=== PATIENT | female | born 1945 | race Caucasian/White ===

== ENCOUNTER 2020-12-22 11:33 | Inpatient (IN) | payer MEDICARE, OTHER, SELFPAY ==
--- NOTE | ~2020-12-22 | XR_ITS ---
EXAMINATION: XR chest 2V DATE: 12/22/2020 12:03 INDICATION: Fatigue TECHNIQUE: AP and lateral views of the chest are obtained. COMPARISON: 06/30/2014 FINDINGS: There are patchy opacities of the lung bases. There is a nodular opacity of the right middl e lobe. There is no pleural effusion or pneumothorax. The cardiomediastinal silhouette is normal. The re is severe thoracic spondylosis. IMPRESSION: 1. Bibasilar airspace opacities and nodular opacity of the right middle lobe. Findings could be infec tious or inflammatory however malignancy is not excluded. Recommend followup radiographs in 10-14 day s after appropriate therapy to evaluate for improvement/resolution. Reviewed, dictated and finalized at location [facility]. IMPRESSION: 1. Bibasilar airspace opacities and nodular opacity of the right middle lobe. F indings could be infectious or inflammatory however malignancy is not excluded. Recommend followup radiographs in 10-14 days after appropriate therapy to eval uate for improvement/resolution.
--- NOTE | ~2020-12-22 | CT_ITS ---
EXAMINATION: CT brain wo con DATE: 12/22/2020 17:00 INDICATION: Weakness, diminished oral intake TECHNIQUE: Computed tomography (CT) of the head was performed without intravenous contrast. The mA wa s adjusted according to patient size. Iterative reconstruction technique was employed. Exam dose: 60 5.33 mGy-cm total exam DLP. COMPARISON: 12/22/2014 CT brain FINDINGS: There is nonspecific diminished attenuation cerebral white matter, likely due to chronic sm all vessel ischemic changes. Bilateral carotid siphon internal carotid artery and vertebral artery ca lcifications. No intracranial mass lesion or hemorrhage or cerebrovascular accident is evident. No midline shift or mass effect. There is moderate cerebral and cerebellar volume loss. No subdural or epidural hematoma. No fracture or bone destruction of the cranial vault. There is soft tissue thickening of the ethmoid air cells and minimal mucoperiosteal thickening of the maxillary sinuses, mild mucoperiosteal thicken ing of the sphenoid sinuses. The mastoid air cells are unremarkable. IMPRESSION: Cerebral atherosclerosis and chronic small vessel ischemic changes of the cerebral white matter No acute intracranial finding Reviewed, dictated and finalized at [facility]. Reviewed, dictated and finalized at location [facility].
[2020-12-22 11:35] VITALS: PULSE 57; RESP 18; O2SAT 90
--- NOTE | 2020-12-22 11:51 | ECG_ITS ---
Measurements Intervals [place] Rate: 60 P: 57 NH: 132 QRS: 58 QRSD: 80 T: 160 QT: 429 QTc: 430 Interpretive Statements SINUS RHYTHM CANNOT RULE OUT SEPTAL INFARCT, AGE INDETERMINATE BASELINE ARTIFACT- I, II, III, AVR, AVL, AVF, V1-V6 ABNORMAL ECG Electronically Signed On 12-23-2020 9:40:42 CDT by Mark Wilson D.O.
[2020-12-22] MEDS: SODIUM CHLORIDE 0.9% IV 1,000 ML 999 ML IV CONT ×2 (12:17→13:42)
[2020-12-22 12:33] LABS: Alveolar/Arterial O2 Gradient 57.5 mmHg; Base Excess ABG -4.8 mEq/l (+/-2.0); Carboxyhemoglobin 1.4 % THb (0-2.0); Fractional Inspired Oxygen 21 %; HCO3 ABG 18.2 mEq/l (22.0-26.0); Methemoglobin ABG 0.4 %THb (0-1.5); Oxygen Content ABG 18.3 %vol (16.0-22.0); Oxygen Saturation ABG 90.7 % (95.0-100.0); Oxyhemoglobin 87.4 % THb (90.0-100.0); PCO2 ABG 29.1 mmHg (35.0-45.0); PO2 ABG 57.4 mmHg (80.0-100.0); PO2 FiO2 Ratio Arterial Blood 2.73 %; Reduced Hemoglobin 10.8 %THb (0-5.0); Total Hemoglobin 14.9 g/dL (12.0-18.0); pH ABG 7.415 (7.350-7.450)
[2020-12-22 12:35] LABS: Device ROOM AIR; Modified Allen's Test Pass; Site Drawn RIGHT RADIAL
[2020-12-22 12:42] LABS: INR 0.9; Prothrombin Time 12.4 Seconds (11.1-14.7)
[2020-12-22 12:43] LABS: Partial Thromboplastin Time 25.7 SECONDS (22.3-36.8)
[2020-12-22 12:48] LABS: Lactic Acid Reflex 0.9 mmol/L (0.7-2.1)
[2020-12-22 12:49] LABS: Alanine Aminotransferase 20 U/L (4-35); Albumin Level 4.1 g/dL (3.5-5.1); Alkaline Phosphatase 52 U/L (38-126); Anion Gap 13 mmol/L (8-16); Aspartate Amino Transferase 38 U/L (14-36); Bilirubin,Total 0.6 mg/dL (0.2-1.3); Blood Urea Nitrogen 35 mg/dL (7-17); Calcium 9.2 mg/dL (8.4-10.2); Carbon Dioxide 22 mmol/L (22-30); Chloride 103 mmol/L (98-107); Estimated Glomerular Filt Rate > 60; Glucose 97 mg/dL (65-110); Potassium 4.1 mmol/L (3.4-5.0); Sodium 138 mmol/L (137-145)
[2020-12-22 12:59] LABS: Eosinophils Percent Auto 0.2 % (0-4.4); Hematocrit 46.6 % (37.0-47.0); Hemoglobin 15.7 g/dL (12.0-15.0); Immature Granulocyte Absolute 0.02 K/mm3 (0.00-0.031); Immature Granulocyte Percent A 0.3 % (0-0.5); Immature Platelet Fraction Pct 15.4 % (0.9-11.2); Lymphocytes Absolute Auto 1.21 K/mm3 (0.9-3.2); Lymphocytes Percent Auto 18.9 % (18.3-44.2); Mean Corpuscular HGB Conc 33.7 g/dl (32-36); Mean Corpuscular Hemoglobin 29.7 pg (26-34); Mean Corpuscular Volume 88.3 fl (80-100); Mean Platelet Volume 13.2 fl (7.4-10.4); Monocytes Absolute Auto 0.8 K/mm3 (0.1-0.6); Monocytes Percent Auto 13.1 % (2.6-8.5); Neutrophils Absolute Auto 4.3 K/mm3 (1.3-6.7); Neutrophils Percent Auto 67.5 % (45.5-73.1); Platelet Count Result 163 k/mm3 (150-375); Red Blood Count 5.28 M/mm3 (4.2-5.4); Red Cell Distribution Width 13.2 % (11.5-14.5); White Blood Count 6.4 K/mm3 (4.5-10.0)
--- NOTE | 2020-12-22 13:30 | ED.GENADULT ---
HPI - General Adult General Chief complaint: Unspecified Stated complaint: not eating, drinking Time Seen by Provider: 12/22/20 11:44 Source: patient, family (sister) and RN notes reviewed Limitations: dementia History of Present Illness HPI narrative: This is a 75 year old female with history of dementia who presents with her sister for evaluation of not eating and drinking. Patient lives alone . Her sister states for the past 5 days patient has been sleeping alot. They also state she is not eat and drinking. Patient states she is eating and drinking. She states how would she know if Im not sleeping or eating, I live alone . Patient has no complaints. she denies headache, recent fall, chest pain, shortness of breath, nausea, vomiting, or fever. She is complaining about her mouth being dry. Related Data Home Medications Medication Instructions Recorded Confirmed ketoconazole 2 % topical cream 1 applic TOPICAL DAILY 02/09/19 memantine 10 mg tablet 10 mg PO QPM 02/09/19 Allergies Allergy/AdvReac Type Severity Reaction Status Date / Time No Known Allergies Allergy Verified 06/08/20 12:15 Review of Systems Review of Systems: All systems reviewed & are unremarkable except as noted in HPI and below PMFSH Past Medical History Medical History Anxiety Chronic diarrhea Dementia, unspecified, without behavioral disturbance Hyperlipidemia, unspecified Malignant neoplasm of colon Mixed hyperlipidemia Non-seasonal allergic rhinitis Normal colonoscopy Prediabetes Rectus diastasis Tobacco abuse Vitamin D deficiency Wheezing Surgical History Surgical History History of cholecystectomy History of partial hysterectomy Family History Family History Father Family history of malignant neoplasm Other Family history of cardiovascular disease Social History Social History Smoking status: Current every day smoker Second hand tobacco smoke exposure: Yes Alcohol intake: current Exam Const: General: cooperative, no acute distress and alert Nutritional Appearance: thin Orientation/consciousness: oriented to person and oriented to place HENMT: Head: normocephalic and atraumatic Ears: TM's normal bilaterally Face and sinus: face symmetric Mouth: Yes lip normal and Yes dry mucous membranes Throat: posterior oropharynx normal, tonsils normal and uvula midline Eyes: Pupils: Equal, round and reactive pupils present EOM: EOMs intact bilaterally Chest: Chest palpation & inspection: normal inspection of the chest Resp: Effort & Inspection: normal respiratory effort and able to speak in complete sentences Auscultation: clear to auscultation bilaterally Skin: General skin exam: normal color Neuro: General: oriented to person and oriented to place Cranial nerves: Yes CN's II-XII intact bilaterally Motor exam (neuro): 5/5 motor strength present throughout Psych: Appearance: grossly normal Speech and movement: Normal speech and movement present Other: patient just lays in bed. Course Reevaluation(s) Reevaluation #1: Patient's sister thinks patient should be kept overnight. She reports they were unable to get patient out of bed and it took them 45 minutes. She was unsteady and weak when she got up. Patient lives alone. She also request for care coordination to look into placement. I was able to get patient out of bed and walk to bathroom. She was slightly unsteady with walking. Chest xray shows possible infection so will test for covid, hydrate and treat for pneumonia. Date: 12/22/20 Time: 17:00 Consultations Consultation #1: I Discussed case with Yasmin Verduzco who accepts patient to service. I discussed family concern. Date: 12/22/20 Time: 18:06 Vital Signs Vital signs: V
[2020-12-22 13:37] VITALS: BP 125/54; PULSE 57; RESP 18; TEMP 36.6; O2SAT 94
[2020-12-22 14:16] LABS: Add Urine Microscopic? YES; Appearance Urine Cloudy (Clear); Bacteria Urine Trace /hpf; Bilirubin Urine Negative (Negative); Blood Urine Negative (Negative); Color Urine Amber (Yellow); Glucose Urine UA Negative (Negative); Ketones Urine Trace mg/dL (Negative); Leukocyte Esterase Ur Negative LEU/UL (Negative); Mucus Urine Heavy /lpf; Nitrate Urine Negative (Negative); Protein Urine 1+ mg/dL (Negative); Specific Grav Ur 1.028 (1.001-1.035); Squamous Epithelial Cell Urine Many /hpf (Few); Urobilinogen Urine Negative mg/dL (<2.0); WBC Urine 0-3 /hpf
--- NOTE | 2020-12-22 16:44 | PC.NURSE ---
PT ASSISTED BACK TO BED, MONITOR PLACED BACK ON PT.
[2020-12-22] MEDS: predniSONE 20 MG TABLET 60 MG PO (18:24)
--- NOTE | 2020-12-22 20:01 | PC.NURSE ---
sent covid swab to the lab
[2020-12-22 20:02] VITALS: BP 122/56; PULSE 60; RESP 16; O2SAT 95
--- NOTE | 2020-12-22 20:36 | PC.NURSE ---
Called to give report at this time. Person answering the phone states nurse will call me back
--- NOTE | 2020-12-22 20:45 | PC.NURSE ---
Called to give report person answering the phone states that the nurse is in a room and he will call me back
--- NOTE | 2020-12-22 20:56 | PM.IMHP ---
H&P: HPI History of Present Illness Date/Time: 12/22/20 20:56 this is a 75-year-old female patient with dementia who lives home alone by herself. She has no children help with her care. The patient's sister brought her into the emergency room for evaluation. The patient has not been eating or drinking. Over the past 5 days she has been sleeping a lot. The patient also has a history of depression as well. When I went to assess the patient she requested to go to the bathroom. I placed a bed mittal under her and she threw it up against the wall. The patient thinks that she is in her house. Then the patient actually Closed her eyes and rolled over on her side refused to speak to me any further. She is a poor historian and could not give me much health history. Her COVID PCR is pending. Head CT is read as cerebral atherosclerosis and chronic small-vessel ischemic changes of the cerebral white matter. No acute intracranial findings. Chest x-ray was read as bibasilar airspace opacities and nodular opacities the right middle lobe. Findings could be infectious or inflammatory however malignancy is not excluded. The patient was started on antibiotics for community-acquired Pneumonia. The patient was started on IV fluids, prednisone, Rocephin and azithromycin. The patient is being admitted for observation status on the date of service of 12/22/2020. Chief Complaint: confusion with anorexia with a history of dementia Review of Systems Review of Systems: ROS unobtainable: Yes unobtainable due to mental status Constitutional: Constitutional: Reports as per HPI and Reports no additional constitutional complaints Eyes: Eyes: Reports as per HPI and Reports no additional eye complaints ENT: Reports system reviewed and no additional complaints, except as documented and Reports Normal hearing present Cardiovascular: Cardiovascular: Reports no additional cardiovascular complaints Respiratory: Respiratory: Reports no additional respiratory complaints and Reports no additional respiratory complaints Gastrointestinal: Gastrointestinal: Reports as per HPI and Reports no additional gastrointestinal complaints Musculoskeletal: Musculoskeletal: Reports no additional musculoskeletal complaints Integumentary/Breasts: Skin/Breast: Reports system reviewed and no additional complaints, except as docu and Reports as per HPI Neurologic: Reports system reviewed and no additional complaints, except as documented, Reports as per HPI and Reports Normal hearing present Psychiatric: Psychiatric: Reports no additional psychiatric complaints and Reports as per HPI Endocrine: Endocrine: Reports no additional endocrine complaints Hematologic/Lymphatic: Hematologic/Lymphatic: Reports no additional hematologic/lymphatic complaints Allergic/Immunologic: Allergic/Immunologic: Reports no additional allergic/immunologic complaints [facility] Past Medical History Medical History (Updated 12/22/20 @ 21:20 by Yasmin Verduzco NP) Anxiety Chronic diarrhea Dementia Dementia, unspecified, without behavioral disturbance History of colon cancer Hyperlipidemia, unspecified Malignant neoplasm of colon Mixed hyperlipidemia Non-seasonal allergic rhinitis Normal colonoscopy Prediabetes Rectus diastasis Tobacco abuse Vitamin D deficiency Wheezing Surgical History Surgical History (Updated 12/22/20 @ 21:07 by Yasmin Verduzco NP) H/O breast biopsy reported as benign H/O cervical spine surgery H/O colonoscopy with polypectomy History of cholecystectomy History of partial hysterectomy History of vocal cord polypectomy Family History Family History Father Family history of malignant neoplasm Other Family history of cardiovascular disease Social History Social History (Updated 12/22/20 @ 21:09 by Yasmin Verduzco NP) Social History: the patient tells me that she continues to smoke about a pack a cigarettes
[2020-12-22 21:46] VITALS: BMI 25.1
[2020-12-22 21:53] VITALS: BP 129/97; PULSE 57; RESP 16; TEMP 36.6; O2SAT 96; BMI 25.1
--- NOTE | 2020-12-22 22:57 | ADMGEN ---
This patient, Kemi Boudreaux, was admitted to [address] [place] [address] Room 300-01. Patient/family oriented to hospital policies and general routines including ID bracelet, bed and alarms, visiting hours, pain management, procedures, bathroom and other care routines, personal items, smoking policy, room service/diet, and visiting hours. Information on how to activate the Rapid Response Team has been discussed. Patient/Family are encouraged to report perceived risks to care and to ask questions if they do not understand what they are told or what they should do.
[2020-12-23 06:00] VITALS: BP 149/68; PULSE 54; RESP 16; TEMP 36.1; O2SAT 94
[2020-12-23] MEDS: NICOTINE (*PBKC) 21 MG PATCH 1 PATCH TRANSDERM ×2 (06:06→09:57)
[2020-12-23] MEDS: SODIUM CHLORIDE 0.9% IV 1,000 ML 125 ML IV CONT (06:07)
[2020-12-23 06:40] LABS: Basophils Percent Auto 0.2 % (0.2-1.2); Eosinophils Percent Auto 0.8 % (0-4.4); Hemoglobin 13.3 g/dL (12.0-15.0); Immature Granulocyte Absolute 0.03 K/mm3 (0.00-0.031); Immature Granulocyte Percent A 0.6 % (0-0.5); Lymphocytes Absolute Auto 1.43 K/mm3 (0.9-3.2); Lymphocytes Percent Auto 30.3 % (18.3-44.2); Mean Corpuscular HGB Conc 33.3 g/dl (32-36); Mean Corpuscular Hemoglobin 29.4 pg (26-34); Mean Corpuscular Volume 88.5 fl (80-100); Mean Platelet Volume 12.7 fl (7.4-10.4); Monocytes Absolute Auto 0.8 K/mm3 (0.1-0.6); Monocytes Percent Auto 15.9 % (2.6-8.5); Neutrophils Absolute Auto 2.5 K/mm3 (1.3-6.7); Neutrophils Percent Auto 52.2 % (45.5-73.1); Platelet Count Result 143 k/mm3 (150-375); Red Blood Count 4.52 M/mm3 (4.2-5.4); Red Cell Distribution Width 13.1 % (11.5-14.5); White Blood Count 4.7 K/mm3 (4.5-10.0)
[2020-12-23 06:53] LABS: Lactic Acid Reflex 0.6 mmol/L (0.7-2.1)
[2020-12-23 07:12] LABS: Alanine Aminotransferase 19 U/L (4-35); Albumin Level 3.3 g/dL (3.5-5.1); Alkaline Phosphatase 46 U/L (38-126); Anion Gap 10 mmol/L (8-16); Aspartate Amino Transferase 36 U/L (14-36); Bilirubin,Total 0.4 mg/dL (0.2-1.3); Blood Urea Nitrogen 22 mg/dL (7-17); CRP 2.3 mg/dL (<1.0); Calcium 8.5 mg/dL (8.4-10.2); Carbon Dioxide 23 mmol/L (22-30); Chloride 106 mmol/L (98-107); Estimated Glomerular Filt Rate > 60; Glucose 90 mg/dL (65-110); Lactate Dehydrogenase 445 U/L (313-618); Lipase 47 U/L (23-300); Magnesium 1.8 mg/dL (1.6-2.3); Potassium 3.8 mmol/L (3.4-5.0); Sodium 139 mmol/L (137-145)
[2020-12-23 08:00] VITALS: BP 140/65; PULSE 64; RESP 16; TEMP 36.4; O2SAT 95
[2020-12-23] MEDS: ENOXAPARIN 40 MG/0.4 ML SYRINGE SUB-Q (09:58)
[2020-12-23 12:00] VITALS: BP 132/57; PULSE 96; RESP 16; TEMP 36.5; O2SAT 96
--- NOTE | 2020-12-23 13:59 | PM.IMPN ---
Progress Note: A&P Assessment and Plan (1) CAP (community acquired pneumonia): Code(s): J18.9 - Pneumonia, unspecified organism Status: Acute Assessment and Plan: Chest x-ray with bibasilar airspace opacities and nodular opacity of the right middle lobe findings could be infectious and inflammatory however malignancy is not excluded. Continue with community-acquired pneumonia antibiotic stewardship with azithromycin Rocephin. Continue with albuterol inhaler. The patient is in isolation for pending COVID PCR. (2) Anorexia: Code(s): R63.0 - Anorexia Status: Acute Assessment and Plan: According to the sister the patient has not eaten or drank very well over the last 5 days. Will need to get a dietary screen and offer her some supplements. This could be related to infectious process or her dementia. could also be related to her depression. (3) Dementia: Code(s): F03.90 - Unspecified dementia without behavioral disturbance Status: Chronic Assessment and Plan: Continue with her home medication of Namenda and Zoloft (4) Person under investigation for COVID-19: Code(s): Z20.822 - Contact with and (suspected) exposure to COVID-19 Status: Acute Assessment and Plan: Patient was placed in droplet and contact isolation her COVID 19 PCR test is pending. (5) Tobacco abuse: Code(s): Z72.0 - Tobacco use Status: Acute Assessment and Plan: I did speak with the patient concerning smoking cessation for approximately 5 minutes she is agreeable to nicotine patch. (6) Mixed hyperlipidemia: Code(s): E78.2 - Mixed hyperlipidemia Status: Chronic Assessment and Plan: Continue with atorvastatin. (7) Anxiety: Code(s): F41.9 - Anxiety disorder, unspecified Status: Chronic Assessment and Plan: Continue with Wellbutrin (8) Acute encephalopathy: Code(s): G93.40 - Encephalopathy, unspecified Status: Acute Assessment and Plan: CT head is negative for any acute intracranial findings. Does note cerebral atherosclerosis and chronic small-vessel ischemic changes the cerebral white matter ABG without hypercapnia WBC count is normal BUN slightly elevated may indicate dehydration TSH within normal limit lipase normal Urine also has multiple hyaline casts may indicate dehydration Will lower her IV fluid to 60 cc an hour The chest x-ray suggestive not sure if she really has pneumonia no other symptoms and signs present COVID is pending will await the result (9) Generalized weakness: Code(s): R53.1 - Weakness Status: Acute Assessment and Plan: For patient's sister. Likely need placement still lives alone. Care coordination consultation Subjective Date/time seen: 12/23/20 13:59 Interval history: HPI:this is a 75-year-old female patient with dementia who lives home alone by herself. She has no children help with her care. The patient's sister brought her into the emergency room for evaluation. The patient has not been eating or drinking. Over the past 5 days she has been sleeping a lot. The patient also has a history of depression as well. When I went to assess the patient she requested to go to the bathroom. I placed a bed mittal under her and she threw it up against the wall. The patient thinks that she is in her house. Then the patient actually Closed her eyes and rolled over on her side refused to speak to me any further. She is a poor historian and could not give me much health history. Her COVID PCR is pending. Head CT is read as cerebral atherosclerosis and chronic small-vessel ischemic changes of the cerebral white matter. No acute intracranial findings. Chest x-ray was read as bibasilar airspace opacities and nodular opacities the right middle lobe. Findings could be infectious or inflammatory however malignancy is not excluded. The patient was started on antibiotics for
[2020-12-23 16:00] VITALS: BP 142/70; PULSE 50; RESP 18; TEMP 37.1; O2SAT 97
[2020-12-23] MEDS: SODIUM CHLORIDE 0.9% IV 1,000 ML 60 ML IV CONT (18:54)
[2020-12-23 20:00] VITALS: BP 139/64; PULSE 54; RESP 18; TEMP 36.9; O2SAT 97
[2020-12-23 20:07] VITALS: O2SAT 97
[2020-12-24] VITALS (8 sets, daily range): BP systolic 147–179; BP diastolic 70–86; PULSE 50–86; RESP 16–20; TEMP 36.1–36.6; O2SAT 94–96; BMI 25.1
[2020-12-24 05:45] LABS: Basophils Percent Auto 0.3 % (0.2-1.2); Hematocrit 39.8 % (37.0-47.0); Hemoglobin 13.5 g/dL (12.0-15.0); Immature Granulocyte Absolute 0.02 K/mm3 (0.00-0.031); Immature Granulocyte Percent A 0.5 % (0-0.5); Lymphocytes Absolute Auto 1.46 K/mm3 (0.9-3.2); Lymphocytes Percent Auto 36.7 % (18.3-44.2); Mean Corpuscular HGB Conc 33.9 g/dl (32-36); Mean Corpuscular Hemoglobin 29.9 pg (26-34); Mean Corpuscular Volume 88.2 fl (80-100); Monocytes Absolute Auto 0.6 K/mm3 (0.1-0.6); Monocytes Percent Auto 14.3 % (2.6-8.5); Neutrophils Absolute Auto 1.9 K/mm3 (1.3-6.7); Neutrophils Percent Auto 47.2 % (45.5-73.1); Platelet Count Result 136 k/mm3 (150-375); Red Blood Count 4.51 M/mm3 (4.2-5.4)
[2020-12-24 06:09] LABS: Anion Gap 8 mmol/L (8-16); Blood Urea Nitrogen 16 mg/dL (7-17); Calcium 8.7 mg/dL (8.4-10.2); Carbon Dioxide 24 mmol/L (22-30); Chloride 104 mmol/L (98-107); Estimated Glomerular Filt Rate > 60; Glucose 85 mg/dL (65-110); Potassium 3.6 mmol/L (3.4-5.0); Sodium 136 mmol/L (137-145)
--- NOTE | 2020-12-24 08:14 | PM.IMPN ---
Progress Note: A&P Assessment and Plan (1) CAP (community acquired pneumonia): Code(s): J18.9 - Pneumonia, unspecified organism Status: Acute Assessment and Plan: Chest x-ray with bibasilar airspace opacities and nodular opacity of the right middle lobe findings could be infectious and inflammatory however malignancy is not excluded. Continue with community-acquired pneumonia antibiotic stewardship with azithromycin Rocephin. Continue with albuterol inhaler. The patient is in isolation for pending COVID PCR. COVID PCR still pending (2) Anorexia: Code(s): R63.0 - Anorexia Status: Acute Assessment and Plan: According to the sister the patient has not eaten or drank very well over the last 5 days. Will need to get a dietary screen and offer her some supplements. This could be related to infectious process or her dementia. could also be related to her depression. This likely underlying dementia perhaps causing and likely will need long-term care/Memory Center (3) Dementia: Code(s): F03.90 - Unspecified dementia without behavioral disturbance Status: Chronic Assessment and Plan: Continue with her home medication of Namenda and Zoloft (4) Person under investigation for COVID-19: Code(s): Z20.822 - Contact with and (suspected) exposure to COVID-19 Status: Acute Assessment and Plan: Patient was placed in droplet and contact isolation her COVID 19 PCR test is pending. (5) Tobacco abuse: Code(s): Z72.0 - Tobacco use Status: Acute Assessment and Plan: I did speak with the patient concerning smoking cessation for approximately 5 minutes she is agreeable to nicotine patch. (6) Mixed hyperlipidemia: Code(s): E78.2 - Mixed hyperlipidemia Status: Chronic Assessment and Plan: Continue with atorvastatin. (7) Anxiety: Code(s): F41.9 - Anxiety disorder, unspecified Status: Chronic Assessment and Plan: Continue with Wellbutrin (8) Acute encephalopathy: Code(s): G93.40 - Encephalopathy, unspecified Status: Acute Assessment and Plan: CT head is negative for any acute intracranial findings. Does note cerebral atherosclerosis and chronic small-vessel ischemic changes the cerebral white matter ABG without hypercapnia WBC count is normal BUN slightly elevated may indicate dehydration TSH within normal limit lipase normal Urine also has multiple hyaline casts may indicate dehydration Continue IV fluids as she has very poor in p.o. intake The chest x-ray suggestive not sure if she really has pneumonia no other symptoms and signs present COVID is pending will await the result (9) Generalized weakness: Code(s): R53.1 - Weakness Status: Acute Assessment and Plan: For patient's sister. Likely need placement still lives alone. Care coordination consultation Subjective Date/time seen: 12/24/20 08:14 Interval history: HPI:this is a 75-year-old female patient with dementia who lives home alone by herself. She has no children help with her care. The patient's sister brought her into the emergency room for evaluation. The patient has not been eating or drinking. Over the past 5 days she has been sleeping a lot. The patient also has a history of depression as well. When I went to assess the patient she requested to go to the bathroom. I placed a bed mittal under her and she threw it up against the wall. The patient thinks that she is in her house. Then the patient actually Closed her eyes and rolled over on her side refused to speak to me any further. She is a poor historian and could not give me much health history. Her COVID PCR is pending. Head CT is read as cerebral atherosclerosis and chronic small-vessel ischemic changes of the cerebral white matter. No acute intracranial findings. Chest x-ray was read as bibasilar airspace opacities and nodular opacities the right m
[2020-12-24] MEDS: NICOTINE (*PBKC) 21 MG PATCH 1 PATCH TRANSDERM (08:37)
[2020-12-24] MEDS: ENOXAPARIN 40 MG/0.4 ML SYRINGE SUB-Q (08:37)
[2020-12-24] MEDS: SODIUM CHLORIDE 0.9% IV 1,000 ML 60 ML IV CONT (14:15)
--- NOTE | 2020-12-24 14:34 | PCPTNOTE ---
Spoke with RN regarding PT re-order and discontinue. PT discontinued per prior eval.
[2020-12-24 19:59] LABS: SARS-CoV-2 RNA PCR Positive
[2020-12-25] VITALS: BP 145/68; PULSE 58; RESP 16; TEMP 36.3; O2SAT 95
[2020-12-25 04:00] VITALS: BP 158/67; PULSE 50; RESP 16; TEMP 36.1; O2SAT 96
[2020-12-25 07:46] VITALS: BP 133/54; PULSE 50; RESP 20; TEMP 35.7; O2SAT 96
[2020-12-25] MEDS: NICOTINE (*PBKC) 21 MG PATCH 1 PATCH TRANSDERM (08:29)
[2020-12-25] MEDS: SODIUM CHLORIDE 0.9% IV 1,000 ML 60 ML IV CONT (08:29)
[2020-12-25 09:02] LABS: INR 0.9; Prothrombin Time 12.5 Seconds (11.1-14.7)
--- NOTE | 2020-12-25 10:26 | PC.NURSE ---
On 12/25/20, the student, [Lexi Rao ], provided care and completed [facility] documentation on this patient. I have reviewed the student's documentation and agree with the findings.
[2020-12-25] MEDS: ENOXAPARIN 40 MG/0.4 ML SYRINGE SUB-Q ×2 (10:46→20:49)
[2020-12-25 11:43] VITALS: BP 136/58; PULSE 51; RESP 18; TEMP 35.9; O2SAT 93
[2020-12-25] MEDS: REMDESIVIR 200 MG/NS 250 ML 200 MG/250 ML BAG 250 MG IVPB (12:13)
--- NOTE | 2020-12-25 15:48 | PM.IMPN ---
Progress Note: A&P Assessment and Plan (1) CAP (community acquired pneumonia): Code(s): J18.9 - Pneumonia, unspecified organism Status: Acute Assessment and Plan: Chest x-ray with bibasilar airspace opacities and nodular opacity of the right middle lobe findings could be infectious and inflammatory however malignancy is not excluded. Continue with community-acquired pneumonia antibiotic stewardship with azithromycin Rocephin. Continue with albuterol inhaler. The patient is in isolation for pending COVID PCR. COVID PCR still pending 12/25/20 15:48 patient is 75-year-old female presented with a cough and shortness of is found to have a community-acquired pneumonia patient also found to be positive for COVID-19 however patient is quite fatigued and somnolent at rest not requiring any oxygen, I have started the patient on dexamethasone 10 mg b.i.d. and remdesivir, will continue to monitor and further recommendation to follow (2) Anorexia: Code(s): R63.0 - Anorexia Status: Acute Assessment and Plan: According to the sister the patient has not eaten or drank very well over the last 5 days. Will need to get a dietary screen and offer her some supplements. This could be related to infectious process or her dementia. could also be related to her depression. This likely underlying dementia perhaps causing and likely will need long-term care/Memory Center (3) Dementia: Code(s): F03.90 - Unspecified dementia without behavioral disturbance Status: Chronic Assessment and Plan: Continue with her home medication of Namenda and Zoloft (4) Person under investigation for COVID-19: Code(s): Z20.822 - Contact with and (suspected) exposure to COVID-19 Status: Acute Assessment and Plan: Patient was placed in droplet and contact isolation her COVID 19 PCR test is pending. (5) Tobacco abuse: Code(s): Z72.0 - Tobacco use Status: Acute Assessment and Plan: I did speak with the patient concerning smoking cessation for approximately 5 minutes she is agreeable to nicotine patch. (6) Mixed hyperlipidemia: Code(s): E78.2 - Mixed hyperlipidemia Status: Chronic Assessment and Plan: Continue with atorvastatin. (7) Anxiety: Code(s): F41.9 - Anxiety disorder, unspecified Status: Chronic Assessment and Plan: Continue with Wellbutrin (8) Acute encephalopathy: Code(s): G93.40 - Encephalopathy, unspecified Status: Acute Assessment and Plan: CT head is negative for any acute intracranial findings. Does note cerebral atherosclerosis and chronic small-vessel ischemic changes the cerebral white matter ABG without hypercapnia WBC count is normal BUN slightly elevated may indicate dehydration TSH within normal limit lipase normal Urine also has multiple hyaline casts may indicate dehydration Continue IV fluids as she has very poor in p.o. intake The chest x-ray suggestive not sure if she really has pneumonia no other symptoms and signs present COVID is pending will await the result (9) Generalized weakness: Code(s): R53.1 - Weakness Status: Acute Assessment and Plan: For patient's sister. Likely need placement still lives alone. Care coordination consultation Subjective Date/time seen: 12/25/20 15:48 patient is 75-year-old female presented with a cough and shortness of is found to have a community-acquired pneumonia patient also found to be positive for COVID-19 however patient is quite fatigued and somnolent at rest not requiring any oxygen, I have started the patient on dexamethasone 10 mg b.i.d. and remdesivir, will continue to monitor and further recommendation to follow Review of Systems Review of Systems: ROS unobtainable: Yes unobtainable due to mental status Exam Narrative: elderly frail somnolent Patient is comfortable, NAD HEENT: eyes are clear and none icteric LUNG
[2020-12-25 16:00] VITALS: BP 126/63; PULSE 50; RESP 20; TEMP 36.1; O2SAT 97
[2020-12-25 20:00] VITALS: BP 139/69; PULSE 55; RESP 16; TEMP 36.6; O2SAT 99
[2020-12-26] VITALS (7 sets, daily range): BP systolic 97–153; BP diastolic 68–86; PULSE 52–72; RESP 16–20; TEMP 35.9–36.4; O2SAT 93–96
[2020-12-26 06:21] LABS: Basophils Percent Auto 0.4 % (0.2-1.2); Hematocrit 41.5 % (37.0-47.0); Hemoglobin 14.1 g/dL (12.0-15.0); Immature Granulocyte Absolute 0.03 K/mm3 (0.00-0.031); Immature Granulocyte Percent A 0.6 % (0-0.5); Immature Platelet Fraction Pct 15.1 % (0.9-11.2); Lymphocytes Absolute Auto 1.27 K/mm3 (0.9-3.2); Lymphocytes Percent Auto 24.7 % (18.3-44.2); Mean Corpuscular Hemoglobin 28.8 pg (26-34); Mean Corpuscular Volume 84.9 fl (80-100); Mean Platelet Volume 12.6 fl (7.4-10.4); Monocytes Absolute Auto 0.4 K/mm3 (0.1-0.6); Neutrophils Absolute Auto 3.5 K/mm3 (1.3-6.7); Neutrophils Percent Auto 67.3 % (45.5-73.1); Platelet Count Result 178 k/mm3 (150-375); Red Blood Count 4.89 M/mm3 (4.2-5.4); Red Cell Distribution Width 12.5 % (11.5-14.5); White Blood Count 5.2 K/mm3 (4.5-10.0)
[2020-12-26 06:30] LABS: INR 0.9; Prothrombin Time 12.1 Seconds (11.1-14.7)
[2020-12-26 06:36] LABS: Alanine Aminotransferase 16 U/L (4-35); Albumin Level 3.1 g/dL (3.5-5.1); Alkaline Phosphatase 39 U/L (38-126); Anion Gap 10 mmol/L (8-16); Aspartate Amino Transferase 24 U/L (14-36); Bilirubin,Total 0.4 mg/dL (0.2-1.3); Blood Urea Nitrogen 18 mg/dL (7-17); CRP 0.7 mg/dL (<1.0); Calcium 8.8 mg/dL (8.4-10.2); Carbon Dioxide 24 mmol/L (22-30); Chloride 104 mmol/L (98-107); Estimated Glomerular Filt Rate > 60; Glucose 118 mg/dL (65-110); Potassium 3.9 mmol/L (3.4-5.0); Sodium 138 mmol/L (137-145)
[2020-12-26] MEDS: SODIUM CHLORIDE 0.9% IV 1,000 ML 60 ML IV CONT (07:59)
[2020-12-26] MEDS: NICOTINE (*PBKC) 21 MG PATCH 1 PATCH TRANSDERM (08:00)
[2020-12-26] MEDS: ENOXAPARIN 40 MG/0.4 ML SYRINGE SUB-Q ×2 (08:00→21:01)
--- NOTE | 2020-12-26 09:07 | P.CDI_ITS ---
CDI Query Clarification Request -Acute encephalopathy has been documented Please further specify type of encephalopathy: * Metabolic * Toxic * Hypertensive * Hepatic * Other * unable to determine <Rose Abbott RN - Last Filed: 12/26/20 09:10> Clarified Diagnosis (1) Acute encephalopathy: Code(s): G93.40 - Encephalopathy, unspecified <Rose Abbott RN - Last Filed: 12/26/20 09:10> Status: Acute <Rose Abbott RN - Last Filed: 12/26/20 09:10> Assessment and Plan: most likely 2/2 metabolic 2/2 COVID-19 <Enoch Serra MD - Last Filed: 12/30/20 12:26>
[2020-12-26] MEDS: REMDESIVIR 100 MG/NS 250 ML 100 MG/250 ML BAG 250 MG IVPB (10:43)
--- NOTE | 2020-12-26 15:07 | PM.IMPN ---
Progress Note: A&P Assessment and Plan (1) CAP (community acquired pneumonia): Code(s): J18.9 - Pneumonia, unspecified organism Status: Acute Assessment and Plan: Chest x-ray with bibasilar airspace opacities and nodular opacity of the right middle lobe findings could be infectious and inflammatory however malignancy is not excluded. Continue with community-acquired pneumonia antibiotic stewardship with azithromycin Rocephin. Continue with albuterol inhaler. The patient is in isolation for pending COVID PCR. COVID PCR still pending 12/25/20 15:48 patient is 75-year-old female presented with a cough and shortness of is found to have a community-acquired pneumonia patient also found to be positive for COVID-19 however patient is quite fatigued and somnolent at rest not requiring any oxygen, I have started the patient on dexamethasone 10 mg b.i.d. and remdesivir, will continue to monitor and further recommendation to follow 12/26/20 Interval history patient remains clinically stable has no new complaint, patient still on room air at rest, patient was started on 12/25 dexamethasone 2/5 and remdesivir 2/5, will continue to monitor will have a PT OT evaluate the patient and further recommendation to follow. (2) Anorexia: Code(s): R63.0 - Anorexia Status: Acute Assessment and Plan: According to the sister the patient has not eaten or drank very well over the last 5 days. Will need to get a dietary screen and offer her some supplements. This could be related to infectious process or her dementia. could also be related to her depression. This likely underlying dementia perhaps causing and likely will need long-term care/Memory Center (3) Dementia: Code(s): F03.90 - Unspecified dementia without behavioral disturbance Status: Chronic Assessment and Plan: Continue with her home medication of Namenda and Zoloft (4) Person under investigation for COVID-19: Code(s): Z20.822 - Contact with and (suspected) exposure to COVID-19 Status: Acute Assessment and Plan: Patient was placed in droplet and contact isolation her COVID 19 PCR test is pending. (5) Tobacco abuse: Code(s): Z72.0 - Tobacco use Status: Acute Assessment and Plan: I did speak with the patient concerning smoking cessation for approximately 5 minutes she is agreeable to nicotine patch. (6) Mixed hyperlipidemia: Code(s): E78.2 - Mixed hyperlipidemia Status: Chronic Assessment and Plan: Continue with atorvastatin. (7) Anxiety: Code(s): F41.9 - Anxiety disorder, unspecified Status: Chronic Assessment and Plan: Continue with Wellbutrin (8) Acute encephalopathy: Code(s): G93.40 - Encephalopathy, unspecified Status: Acute Assessment and Plan: CT head is negative for any acute intracranial findings. Does note cerebral atherosclerosis and chronic small-vessel ischemic changes the cerebral white matter ABG without hypercapnia WBC count is normal BUN slightly elevated may indicate dehydration TSH within normal limit lipase normal Urine also has multiple hyaline casts may indicate dehydration Continue IV fluids as she has very poor in p.o. intake The chest x-ray suggestive not sure if she really has pneumonia no other symptoms and signs present COVID is pending will await the result (9) Generalized weakness: Code(s): R53.1 - Weakness Status: Acute Assessment and Plan: For patient's sister. Likely need placement still lives alone. Care coordination consultation Subjective Date/time seen: 12/26/20 15:07 12/25/20 Interval history patient is 75-year-old female presented with a cough and shortness of is found to have a community-acquired pneumonia patient also found to be positive for COVID-19 however patient is quite fatigued and somnolent at rest not requiring any oxygen, I have started the patient on dexametha
[2020-12-27] VITALS: BP 137/68; PULSE 59; RESP 16; TEMP 36.4; O2SAT 94
[2020-12-27 06:00] VITALS: BP 121/61; PULSE 59; RESP 16; TEMP 36.4; O2SAT 98
[2020-12-27 06:20] LABS: Basophils Percent Auto 0.1 % (0.2-1.2); Hematocrit 41.3 % (37.0-47.0); Hemoglobin 13.7 g/dL (12.0-15.0); Immature Granulocyte Percent A 0.8 % (0-0.5); Lymphocytes Absolute Auto 1.49 K/mm3 (0.9-3.2); Mean Corpuscular HGB Conc 33.2 g/dl (32-36); Mean Corpuscular Hemoglobin 29.1 pg (26-34); Mean Corpuscular Volume 87.9 fl (80-100); Mean Platelet Volume 13.1 fl (7.4-10.4); Monocytes Absolute Auto 0.7 K/mm3 (0.1-0.6); Monocytes Percent Auto 5.4 % (2.6-8.5); Neutrophils Absolute Auto 10.1 K/mm3 (1.3-6.7); Neutrophils Percent Auto 81.7 % (45.5-73.1); Platelet Count Result 207 k/mm3 (150-375); Red Cell Distribution Width 12.8 % (11.5-14.5); White Blood Count 12.4 K/mm3 (4.5-10.0)
[2020-12-27 06:21] LABS: INR 1.1; Prothrombin Time 13.8 Seconds (11.1-14.7)
[2020-12-27 06:35] LABS: Alanine Aminotransferase 15 U/L (4-35); Albumin Level 2.9 g/dL (3.5-5.1); Alkaline Phosphatase 36 U/L (38-126); Anion Gap 8 mmol/L (8-16); Aspartate Amino Transferase 21 U/L (14-36); Bilirubin,Total 0.3 mg/dL (0.2-1.3); Blood Urea Nitrogen 27 mg/dL (7-17); CRP 0.5 mg/dL (<1.0); Calcium 8.8 mg/dL (8.4-10.2); Carbon Dioxide 26 mmol/L (22-30); Chloride 104 mmol/L (98-107); Estimated Glomerular Filt Rate > 60; Glucose 125 mg/dL (65-110); Potassium 3.9 mmol/L (3.4-5.0); Sodium 138 mmol/L (137-145)
[2020-12-27 08:00] VITALS: BP 149/66; PULSE 67; RESP 16; TEMP 36.6; O2SAT 94
[2020-12-27] MEDS: ENOXAPARIN 40 MG/0.4 ML SYRINGE SUB-Q (08:49)
[2020-12-27] MEDS: NICOTINE (*PBKC) 21 MG PATCH 1 PATCH TRANSDERM (08:49)
[2020-12-27] MEDS: REMDESIVIR 100 MG/NS 250 ML 100 MG/250 ML BAG 250 MG IVPB (10:13)
--- NOTE | 2020-12-27 10:33 | PCNFU ---
Nutrition Follow-Up Complete: Inadequate oral intake related to dementia vs depression vs. other etiology as evidenced by intake records and documented 15% weight loss x 1 year. Goal: Patient to consume 50% of meals/supplements or greater. Patient has limited progress towards goal. We will continue current goal. Pt current nutrition is Regular with Ensure Enlive TID. Last recorded weight is 56.4 kg, no new weight to report. Bowel Motility:+BM reported 12/26 Labs Reviewed:Cr 0.6,BUN 27,Alb 2.9 Meds Noted:Remdesivir, NS, Decadron, Lovenox, Rocephin. Additional Notes: Nutrition follow up. Spoke with nursing today due to COVID 19 precautions. Patient oral intake has been poor. TAG PRESS OPERATOR states she was eating jay today from breakfast tray. She will drink the Ensure Enlive TID providing an additional 350 kcals and 20 gms protein. TAG PRESS OPERATOR's are planning to encourage po intake. Agree with diet orders. Monitoring: Follow up in 3 days.
[2020-12-27 12:00] VITALS: BP 108/51; PULSE 75; RESP 17; TEMP 36.3; O2SAT 95
--- NOTE | 2020-12-27 13:20 | PM.DS ---
DS: Admitting Diagnosis Discharge Date 12/27/2020 Admitting Diagnosis Chief Complaint: confusion with anorexia with a history of dementia DS: Discharge Diagnosis Discharge Diagnosis (1) CAP (community acquired pneumonia): Code(s): J18.9 - Pneumonia, unspecified organism Status: Acute Assessment and Plan: Chest x-ray with bibasilar airspace opacities and nodular opacity of the right middle lobe findings could be infectious and inflammatory however malignancy is not excluded. Continue with community-acquired pneumonia antibiotic stewardship with azithromycin Rocephin. Continue with albuterol inhaler. The patient is in isolation for pending COVID PCR. COVID PCR still pending 12/25/20 15:48 patient is 75-year-old female presented with a cough and shortness of is found to have a community-acquired pneumonia patient also found to be positive for COVID-19 however patient is quite fatigued and somnolent at rest not requiring any oxygen, I have started the patient on dexamethasone 10 mg b.i.d. and remdesivir, will continue to monitor and further recommendation to follow 12/26/20 Interval history patient remains clinically stable has no new complaint, patient still on room air at rest, patient was started on 12/25 dexamethasone 2/5 and remdesivir 2/5, will continue to monitor will have a PT OT evaluate the patient and further recommendation to follow. (2) Anorexia: Code(s): R63.0 - Anorexia Status: Acute Assessment and Plan: According to the sister the patient has not eaten or drank very well over the last 5 days. Will need to get a dietary screen and offer her some supplements. This could be related to infectious process or her dementia. could also be related to her depression. This likely underlying dementia perhaps causing and likely will need long-term care/Memory Center (3) Dementia: Code(s): F03.90 - Unspecified dementia without behavioral disturbance Status: Chronic Assessment and Plan: Continue with her home medication of Namenda and Zoloft (4) Person under investigation for COVID-19: Code(s): Z20.822 - Contact with and (suspected) exposure to COVID-19 Status: Acute Assessment and Plan: Patient was placed in droplet and contact isolation her COVID 19 PCR test is pending. (5) Tobacco abuse: Code(s): Z72.0 - Tobacco use Status: Acute Assessment and Plan: I did speak with the patient concerning smoking cessation for approximately 5 minutes she is agreeable to nicotine patch. (6) Mixed hyperlipidemia: Code(s): E78.2 - Mixed hyperlipidemia Status: Chronic Assessment and Plan: Continue with atorvastatin. (7) Anxiety: Code(s): F41.9 - Anxiety disorder, unspecified Status: Chronic Assessment and Plan: Continue with Wellbutrin (8) Acute encephalopathy: Code(s): G93.40 - Encephalopathy, unspecified Status: Acute Assessment and Plan: CT head is negative for any acute intracranial findings. Does note cerebral atherosclerosis and chronic small-vessel ischemic changes the cerebral white matter ABG without hypercapnia WBC count is normal BUN slightly elevated may indicate dehydration TSH within normal limit lipase normal Urine also has multiple hyaline casts may indicate dehydration Continue IV fluids as she has very poor in p.o. intake The chest x-ray suggestive not sure if she really has pneumonia no other symptoms and signs present COVID is pending will await the result (9) Generalized weakness: Code(s): R53.1 - Weakness Status: Acute Assessment and Plan: For patient's sister. Likely need placement still lives alone. Care coordination consultation DS: Summary Hospital Course Reason for hospitalization: this is a 75-year-old female patient with dementia who lives home alone by herself. She has no children help with her care. The patient's sister brou
[2020-12-27 16:00] VITALS: BP 141/76; PULSE 60; RESP 16; TEMP 36.6; O2SAT 96
== END 2020-12-27 17:35 | DRG 177 ==
LOC: ANHED 18:08 → ANH3MEDSUR 20:27
PROVIDERS: Nurse Practitioner; Admitting Provider Internal Medicine; Emergency Provider General Practice; PCP Family Medicine; Visit Provider Family Medicine
DX: U07.1 COVID-19 (principal); J18.9 Pneumonia, unspecified organism; G93.40 Encephalopathy, unspecified; F03.90 Unspecified dementia, unspecified severity, without behavioral disturbance, psychotic disturbance, mood disturbance, and anxiety; E86.0 Dehydration; R63.0 Anorexia; E78.2 Mixed hyperlipidemia; R73.03 Prediabetes; F17.210 Nicotine dependence, cigarettes, uncomplicated; R53.1 Weakness; F41.9 Anxiety disorder, unspecified; Z79.899 Other long term (current) drug therapy; Z85.038 Personal history of other malignant neoplasm of large intestine
CPT/HCPCS: 36415; 36600; 70450; 71046; 80048; 80053; 81001; 82375; 82728; 82805; 83050; 83605; 83615; 83690; 83735; 84443; 85025; 85055; 85610; 85730; 86140; 87040; 93005; 96361; 96365; 96367; 97161; 97165; 99285; A9270; C9803; G0378; J0456; J0696; J1100; J1650; J7030; J7512; U0003; U0005

== ENCOUNTER 2022-03-20 12:36 | Emergency (ER) | payer MEDICARE, OTHER, SELFPAY ==
--- NOTE | ~2022-03-20 | CT_ITS ---
EXAMINATION: CT chest abdomen pelvis w con DATE: 03/20/2022 15:57 INDICATION: Left chest pain. Shortness of breath. TECHNIQUE: Computed tomography (CT) of the chest, abdomen, and pelvis was performed with 100 mL Omnip aque 350 intravenous contrast. Automated exposure control and iterative reconstruction technique were employed. The dose-length product was 506.88 mGy-cm. COMPARISON: CT abdomen and pelvis 06/22/2014 FINDINGS: CHEST CT: There is a 5.8 x 5.5 cm mass centered in right middle lobe. There are airspace opacities in right upp er lobe. There are a few scattered nodules in the lungs measuring up to 5 mm, at least many of which are stable from 06/22/14. There is mild atelectasis bilaterally. There is a small left pleural effusio n. The heart size is normal. There are coronary artery calcifications. There is a trace pericardial e ffusion. There is bulky right hilar and right paratracheal lymphadenopathy with the largest node jo-ann uring 6.2 x 5.3 cm. There is a small sliding hiatal hernia. There is severe thoracic spondylosis. The re is sclerosis in the body of the sacrum. ABDOMEN/PELVIS CT: There is mild intrahepatic biliary duct dilatation. The common duct is dilated to 11 mm, stable from 06/22/14. There are changes of cholecystectomy. The spleen, pancreas, and right adrenal gland are norm al. There is a 14 mm mass in left adrenal gland measuring soft tissue attenuation, stable from 5, likely an adenoma. There is cortical thinning of the kidneys. There are cysts in left kidney measu ring up to 4 mm. Stool distends the rectum. There is diverticulosis of the colon without evidence of diverticulitis. There are changes of right hemicolectomy. There are no pathologically enlarged lymph nodes. There is no free intraperitoneal fluid. There is severe lumbar spondylosis. IMPRESSION: 1. Mass in right lung middle lobe, consistent with primary bronchogenic carcinoma. 2. Right hilar and mediastinal lymphadenopathy, consistent with metastatic disease. 3. Small left pleural effusion. 4. Right upper lobe airspace opacities, consistent with atelectasis/scarring versus pneumonia. 5. Sclerosis in the body of the sacrum, which may be an old fracture or metastatic disease. Reviewed, dictated and finalized at location [facility] IMPRESSION: 1. Mass in right lung middle lobe, consistent with primary bronchogenic carcino ma. 2. Right hilar and mediastinal lymphadenopathy, consistent with metastatic dise ase. 3. Small left pleural effusion. 4. Right upper lobe airspace opacities, consistent with atelectasis/scarring ve rsus pneumonia. 5. Sclerosis in the body of the sacrum, which may be an old fracture or metasta tic disease.
--- NOTE | ~2022-03-20 | XR_ITS ---
EXAMINATION: XR chest 2V DATE: 03/20/2022 13:38 INDICATION: Left-sided chest pain and shortness of breath TECHNIQUE: frontal and lateral views of the chest were obtained. COMPARISON: Chest radiograph dated 12/22/2020 FINDINGS: Increased elevation of the left hemidiaphragm. Diffuse indistinct interstitial pattern in the bilater al lower lung zones consistent with mild pulmonary edema. There is more dense consolidation in the ri ght middle lobe with obscuration of the right heart border. There is a contour to the right minor fis sure which suggests possibility of an obstructing central right middle lobe mass with secondary atele ctasis or pneumonia. Additional small subpleural bandlike opacity lateral right mid to upper lung zon e which could represent additional pneumonia or atelectasis. No pneumothorax or definitive pleural ef fusion. Heart size is normal. Widening of the right side of the superior mediastinum suspicious for b ulky right paratracheal lymphadenopathy which could be metastatic or due to lymphoma. Bone graft cage projects over the region of the cervicothoracic junction likely related to prior anterior spinal fus ion. IMPRESSION: 1. Right middle lobe consolidation with suggestion of a central/perihilar mass suspicious for broncho genic carcinoma and secondary postobstructive atelectasis and/or pneumonia. 2. Right-sided superior mediastinal widening suspicious for associated metastatic right paratracheal lymphadenopathy. For both this and the above findings would recommend further evaluation with postcon trast chest CT could consider also including at least the abdomen if not the abdomen and pelvis to as sess for additional metastatic disease. 3. Increased interstitial pattern bilateral lower lung zones consistent with mild pulmonary edema. Reviewed, dictated and finalized at location A. [employer] IMPRESSION: 1. Right middle lobe consolidation with suggestion of a central/perihilar mass suspicious for bronchogenic carcinoma and secondary postobstructive atelectasis and/or pneumonia. 2. Right-sided superior mediastinal widening suspicious for associated metastat ic right paratracheal lymphadenopathy. For both this and the above findings wou ld recommend further evaluation with postcontrast chest CT could consider also including at least the abdomen if not the abdomen and pelvis to assess for florencio tional metastatic disease. 3. Increased interstitial pattern bilateral lower lung zones consistent with mi ld pulmonary edema.
[2022-03-20 12:39] VITALS: BP 128/65; PULSE 94; RESP 18; TEMP 37.1; O2SAT 96
--- NOTE | 2022-03-20 12:44 | ECG_ITS ---
Measurements Intervals [place] Rate: 106 P: 53 CT: 118 QRS: 55 QRSD: 78 T: 39 QT: 341 QTc: 454 Interpretive Statements SINUS TACHYCARDIA WITH SHORT CT INTERVAL DELAYED PRECORDIAL R/S TRANSITION BORDERLINE T WAVE ABNORMALITY- ANTERIOR LEADS BASELINE ARTIFACT- II, III, AVL ABNORMAL ECG COMPARED TO ECG 12/22/2020 12:41:38 SINUS TACHYCARDIA NOW PRESENT Electronically Signed On 03-20-2022 12:52:44 TELEPHONE TECHNICIAN by Mark Wilson D.O.
[2022-03-20 13:19] LABS: Basophils Absolute Auto 0.1 K/mm3 (0.0-0.1); Basophils Percent Auto 0.5 % (0.2-1.2); Eosinophils Absolute Auto 0.1 K/mm3 (0-0.3); Eosinophils Percent Auto 0.7 % (0-4.4); Hemoglobin 11.6 g/dL (12.0-15.0); Immature Granulocyte Absolute 0.05 K/mm3 (0.00-0.031); Immature Granulocyte Percent A 0.5 % (0-0.5); Lymphocytes Absolute Auto 1.13 K/mm3 (0.9-3.2); Lymphocytes Percent Auto 11.2 % (18.3-44.2); Mean Corpuscular HGB Conc 31.4 g/dl (32-36); Mean Corpuscular Hemoglobin 27.4 pg (26-34); Mean Corpuscular Volume 87.3 fl (80-100); Mean Platelet Volume 10.7 fl (7.4-10.4); Monocytes Absolute Auto 0.9 K/mm3 (0.1-0.6); Monocytes Percent Auto 8.5 % (2.6-8.5); Neutrophils Percent Auto 78.6 % (45.5-73.1); Platelet Count Result 405 k/mm3 (150-375); Red Blood Count 4.24 M/mm3 (4.2-5.4); Red Cell Distribution Width 15.5 % (11.5-14.5); White Blood Count 10.1 K/mm3 (4.5-10.0)
[2022-03-20 13:26] LABS: Prothrombin Time 13.2 Seconds (11.1-14.7)
[2022-03-20 13:28] LABS: Partial Thromboplastin Time 32.7 SECONDS (22.3-36.8)
[2022-03-20 13:50] LABS: Alanine Aminotransferase 27 U/L (6-35); Albumin Level 2.8 g/dL (3.5-5.1); Alkaline Phosphatase 238 U/L (38-126); Anion Gap 3 mmol/L (8-16); Aspartate Amino Transferase 38 U/L (14-36); Bilirubin,Total 0.9 mg/dL (0.2-1.3); Blood Urea Nitrogen 18 mg/dL (7-17); Calcium 7.8 mg/dL (8.4-10.2); Carbon Dioxide 31 mmol/L (22-30); Chloride 102 mmol/L (98-107); Estimated CRCL calculation 55 ml/min; Estimated Glomerular Filt Rate > 60; Glucose 117 mg/dL (65-110); Lipase 43 U/L (23-300); Potassium 3.6 mmol/L (3.4-5.0); Sodium 136 mmol/L (137-145)
[2022-03-20 14:04] LABS: Troponin I < 0.012 ng/mL (0.000-0.034)
--- NOTE | 2022-03-20 16:01 | ED.CHESTPAIN ---
HPI - Chest Pain General Chief Complaint: Chest Pain Stated Complaint: cp Time Seen by Provider: 03/20/22 14:47 History of Present Illness HPI narrative: Patient with history of dementia presents with 2 days of difficulty breathing and cough. No fevers or chills. Remote history of colon cancer. Also endorses some pain to her left chest/ribs. Related Data Allergies Allergy/AdvReac Type Severity Reaction Status Date / Time No Known Allergies Allergy Verified 06/08/20 12:15 Review of Systems Review of Systems: CONST: No fever. HEENT: No sore throat C/V: left rib pain RESP: Cough/difficulty breathing GI: No abdominal pain : No dysuria. M/S: No joint pain. SKIN: No rash. NEURO: [No headache or focal numbness or weakness] PSYCH: [No depression] [facility] Past Medical History Medical History Anxiety Chronic diarrhea Dementia Dementia, unspecified, without behavioral disturbance History of colon cancer Hyperlipidemia, unspecified Malignant neoplasm of colon Mixed hyperlipidemia Non-seasonal allergic rhinitis Normal colonoscopy Prediabetes Rectus diastasis Tobacco abuse Vitamin D deficiency Wheezing Surgical History Surgical History H/O breast biopsy reported as benign H/O cervical spine surgery H/O colonoscopy with polypectomy History of cholecystectomy History of partial hysterectomy History of vocal cord polypectomy Family History Family History Father Family history of malignant neoplasm Other Family history of cardiovascular disease Social History Social History Social History: the patient tells me that she continues to smoke about a pack a cigarettes a day. She tells me she has no children and she is . She lives home alone. she is retired from [employer] in the office. Her sister Deirdre is listed as her next of kin for contacts. The patient tells me she does not have a durable power criminal attorney for healthcare. She denies any alcohol marijuana or illicit drugs. Code status full code Smoking packs per day: 1 Smoking cigarettes per day: 20.0 Smoking status: Current every day smoker Tobacco type: cigarettes Second hand tobacco smoke exposure: Yes Alcohol intake: former Substance use: never Substance use type: does not use Spiritual care concerns: No Exam Narrative: EXAMINATION OF ORGAN SYSTEMS/BODY AREAS: Constitutional: Vital signs per nursing GENERAL:[No acute distress, non-toxic appearing.] Resting comfortably in bed. HEAD: Normal with no signs of head trauma. EYES: EOMI, conjunctiva normal ENT: Hearing grossly intact LUNGS: Nonlabored breathing. HEART: [Regular rate and rhythm] ABD: [Soft], [nontender to palpation] EXT: Normal range of motion SKIN: [No rashes or lesions.] NEURO: [Alert. No gross focal sensory or strength deficits.] PSYCH: Normal affect Course Vital Signs Vital signs: Vital Signs Temperature 98.7 F 03/20/22 12:39 Pulse Rate 94 03/20/22 12:39 Respiratory Rate 18 03/20/22 12:39 Blood Pressure 128/65 03/20/22 12:39 Pulse Oximetry 96 03/20/22 12:39 Oxygen Delivery Room Air 03/20/22 12:39 Temperature 98.7 F 03/20/22 12:39 Pulse Rate 94 03/20/22 12:39 Respiratory Rate 18 03/20/22 12:39 Blood Pressure 128/65 03/20/22 12:39 Pulse Oximetry 96 03/20/22 12:39 Oxygen Delivery Room Air 03/20/22 12:39 MDM - Chest Pain MDM Narrative Medical decision making narrative: Patient presents with left side pain and cough with some difficulty breathing, vital signs normal here with normal oxygen levels, she is resting comfortably in no respiratory distress, not in any pain. About cardiac and infectious work-up initiated, she does have a white count of 10.1, otherwise troponin is negative, EKG - 12-Le
[2022-03-20] MEDS: DOXYCYCLINE HYCLATE 100 MG TABLET PO (16:27)
[2022-03-20 16:28] LABS: Troponin I < 0.012 ng/mL (0.000-0.034)
== END 2022-03-20 17:15 ==
LOC: ANHED 16:59
PROVIDERS: Emergency Medicine; Emergency Provider Emergency Medicine; PCP Family Medicine
DX: J18.9 Pneumonia, unspecified organism (principal); R91.8 Other nonspecific abnormal finding of lung field; R07.9 Chest pain, unspecified; F03.90 Unspecified dementia, unspecified severity, without behavioral disturbance, psychotic disturbance, mood disturbance, and anxiety; Z85.038 Personal history of other malignant neoplasm of large intestine; E78.5 Hyperlipidemia, unspecified; E78.2 Mixed hyperlipidemia; E55.9 Vitamin D deficiency, unspecified; Z90.711 Acquired absence of uterus with remaining cervical stump; F17.210 Nicotine dependence, cigarettes, uncomplicated; R00.0 Tachycardia, unspecified; R94.31 Abnormal electrocardiogram [ECG] [EKG]; G95.89 Other specified diseases of spinal cord; R59.1 Generalized enlarged lymph nodes
CPT/HCPCS: 36415; 71046; 71260; 74177; 80053; 83690; 84484; 85025; 85610; 85730; 87040; 93005; 96365; 99284; A9270; J0696; Q9967